=== PATIENT | male | born 1960 | race Caucasian/White ===

== ENCOUNTER 2020-04-09 21:49 | Emergency (ER) | payer OTHER ==
[~2020-04-09] VITALS: Ht 182.9 cm; Wt 81.7 kg
[~2020-04-09 21:49] MED LIST: ACET325 PO; ACETAMINOPHEN500 MG PO; ALBU90OI6; Aspir 8181 MG PO; CEPH500 PO; CLON.1 PO; CLON.5 PO; CLON1 PO; CYCL10; CYCL10 PO; GUAI120S1 PO; HYDR1TAB94 PO; Klonopin1 MG PO; LEVFLO500 PO; LISI20 PO; LORA10; LOSA50 PO; Levaquin500 MG PO; Norco 10-325 T1 EACH PO; Norco 5-325 Ta1 EACH PO; PRAV20 PO; PRED20 PO; PROM25 PO; Prozac20 MG PO; ROXICODONE5 MG PO; SIMV40 PO; SPIHYD; TOPI50 PO; ZESTORETIC 20-121 EA PO; Zofran Odt4 MG PO
[2020-04-09] MEDS ORDERED: Mobic7.5 MG PO (23:14)
== END 2020-04-09 23:27 | disposition home or self-care (01) ==
LOC: ER 21:49
DX: M25.512 Pain in left shoulder (principal); M25.511 Pain in right shoulder; I10 Essential (primary) hypertension; F41.9 Anxiety disorder, unspecified; J43.9 Emphysema, unspecified; F17.200 Nicotine dependence, unspecified, uncomplicated; Z88.0 Allergy status to penicillin; Z88.6 Allergy status to analgesic agent; Z88.5 Allergy status to narcotic agent; Z79.82 Long term (current) use of aspirin; Z79.899 Other long term (current) drug therapy
CPT/HCPCS: 99284-25

== ENCOUNTER 2022-06-04 11:30 | Emergency (ER) | payer OTHER ==
[~2022-06-04] VITALS: Ht 177.8 cm; Wt 86.2 kg
[~2022-06-04 11:30] MED LIST changes: +Mobic7.5 MG PO
[2022-06-04] MEDS ORDERED: ATOR40TA PO (12:01)
[2022-06-04] MEDS ORDERED: METOPROLOL TART25 MG PO (12:01)
== END 2022-06-04 13:15 | disposition home or self-care (01) ==
LOC: ER 11:30
DX: M79.674 Pain in right toe(s) (principal); M79.675 Pain in left toe(s); M25.559 Pain in unspecified hip; M25.519 Pain in unspecified shoulder; I10 Essential (primary) hypertension; J44.9 Chronic obstructive pulmonary disease, unspecified; F17.200 Nicotine dependence, unspecified, uncomplicated; Z88.0 Allergy status to penicillin; Z88.6 Allergy status to analgesic agent; Z88.5 Allergy status to narcotic agent; Z88.8 Allergy status to other drugs, medicaments and biological substances; Z79.899 Other long term (current) drug therapy; Z79.82 Long term (current) use of aspirin; Z59.00 Homelessness unspecified
CPT/HCPCS: 99281

== ENCOUNTER 2022-07-05 15:30 | Emergency (ER) | payer OTHER ==
[~2022-07-05] VITALS: Ht 182.9 cm; Wt 86.2 kg
[~2022-07-05 15:30] MED LIST changes: +ATOR40TA PO; +METOPROLOL TART25 MG PO
== END 2022-07-05 16:31 | disposition home or self-care (01) ==
LOC: ER 15:30
DX: M79.672 Pain in left foot (principal); I10 Essential (primary) hypertension; J43.9 Emphysema, unspecified; F17.200 Nicotine dependence, unspecified, uncomplicated; X50.3XXA Overexertion from repetitive movements, initial encounter
CPT/HCPCS: 99282

== ENCOUNTER 2022-08-18 14:13 | Emergency (ER) | payer OTHER ==
[~2022-08-18] VITALS: Ht 177.8 cm; Wt 72.6 kg
== END 2022-08-18 15:14 | disposition home or self-care (01) ==
LOC: ER 14:13
DX: M79.671 Pain in right foot (principal); M79.672 Pain in left foot; I10 Essential (primary) hypertension; J44.9 Chronic obstructive pulmonary disease, unspecified; F17.200 Nicotine dependence, unspecified, uncomplicated; Z79.899 Other long term (current) drug therapy; Z79.82 Long term (current) use of aspirin; Z88.0 Allergy status to penicillin; Z88.6 Allergy status to analgesic agent
CPT/HCPCS: 99283